=== PATIENT | female | born 1955 | race Caucasian/White ===

== ENCOUNTER 2020-11-03 13:16 | Emergency (ER) | payer MEDICAID, OTHER ==
[~2020-11-03] VITALS: Ht 147.3 cm; Wt 59.0 kg
[2020-11-03 19:47] LABS: BASOPHILS % 0.5 % (0.0-2.0); EOSINOPHILS % 1.1 % (0.0-5.0); HEMATOCRIT. 38.2 % (36.0-48.0); HEMOGLOBIN. 13.2 g/dL (12.0-16.0); LYMPHOCYTES % 31.8 % (20.0-50.0); MEAN CORPUSCULAR HEMOGLOBIN 31.6 pg (28.0-32.0); MEAN CORPUSCULAR VOLUME 91.6 fL (81.0-99.0); MEAN PLATELET VOLUME 7.8 fl (7.4-10.4); MONOCYTES % 9.3 % (2.0-8.0); NEUTROPHILS % 57.3 % (40.0-76.0); PLATELET 200 x1000/uL (130-400); RED BLOOD CELL COUNT 4.17 mill/uL (4.2-5.4); RED CELL DISTRIBUTION WIDTH 13.5 % (11.6-14.6)
[2020-11-03 19:54] LABS: CHLORIDE 106 mEq/L (98-107)
[2020-11-03 19:55] LABS: PROTHROMBIN TIME 10.4 sec (9.6-11.0)
[2020-11-03] MEDS ORDERED: SODIUM CHLORIDE 0.9% 1,000 ML IV ONE (23:30)
[2020-11-04 03:10] VITALS: BP 145/79
== END 2020-11-04 03:19 | disposition short-term general hospital (02) ==
LOC: ER 13:16
DX: K62.5 Hemorrhage of anus and rectum (principal); R42 Dizziness and giddiness; Z20.822 Contact with and (suspected) exposure to COVID-19; E11.9 Type 2 diabetes mellitus without complications; J45.909 Unspecified asthma, uncomplicated; E78.00 Pure hypercholesterolemia, unspecified
CPT/HCPCS: 36415; 80053; 85025; 85610; 86850; 86900; 86901; 87426; 96360; 99283; J7030